=== PATIENT | female | born 1995 | race Caucasian/White ===

== ENCOUNTER 2018-09-16 23:13 | Emergency (ER) | payer SELFPAY ==
[~2018-09-16] VITALS: Ht 162.6 cm; Wt 51.7 kg
[~2018-09-16 23:13] MED LIST: NITR-65 PO
--- OUTSIDE RECORDS SUMMARY | 2018-09-16 23:18 | XMS REPORT ---
Author Author DEINSE CASTILLO [facility] Address [address] [place] [address] Care Team Providers Care Government Auditor Name Role Phone DENISE CASTILLO Unavailable PROBLEMS Type Condition ICD9-CM Code [id number] Code Onset Dates Condition Status SNOMED Code Problem Menorrhagia with irregular cycle N92.1 Active 005080421 Problem Dysfunctional uterine bleeding N93.8 Active 03751430 Problem Moderate episode of recurrent major depressive disorder F33.1 Active 409206831 Problem Borderline personality disorder F60.3 Active 68536199 ALLERGIES No Information ENCOUNTERS Encounter Location Date Diagnosis [place] [id number] [place] [address] 08028- 5460 Mar, [place] [id number] [place] [address] 24277- 5234 Mar, Menorrhagia with irregular cycle N92.1 and IUD check up Z30.431 [place] [id number] [place] [address] 59644- 7206 Jan, Encounter for insertion of mirena IUD Z30.430 and Screening examination for sexually transmitted disease Z11.3 [place] [id number] [place] [address] 14857- 2958 Jan, Encounter for other contraceptive management Z30.8 and Dysfunctional uterine bleeding N93.8 [place] [id number] [place] [address] 20044- 7471 Dec, [place] [id number] [place] [address] 92715- 6301 Dec, [place] [id number] [place] [address] 59657- 8116 Dec, Moderate episode of recurrent major depressive disorder F33.1 [facility] [address] [facility] [id number] [place] [address] 8766 Dec, [facility] [address] [facility] [id number], [place] [address] 2546 Dec, Moderate episode of recurrent major depressive disorder F33.1 and Encounter for surveillance of contraceptive pills Z30.41 [facility] [address] [facility] [id number] [id number] Sep, Dental examination Z01.20 IMMUNIZATIONS No Known Immunizations SOCIAL HISTORY Never Assessed REASON FOR VISIT BH/AT phone response PLAN OF CARE VITAL SIGNS MEDICATIONS Unknown Medications RESULTS No Results PROCEDURES No Known procedures INSTRUCTIONS MEDICATIONS ADMINISTERED No Known Medications MEDICAL (GENERAL) HISTORY Type Description Date Surgical History Appendix Hospitalization History surgeries 2017
--- OUTSIDE RECORDS SUMMARY | 2018-09-16 23:18 | XMS REPORT ---
Author Author DENISE CASTILLO [facility] Address [address] [place] [address] Care Team Providers Care Housing Inspector Name Role Phone DENISE CASTILLO Unavailable PROBLEMS Type Condition ICD9-CM Code [id number] Code Onset Dates Condition Status SNOMED Code Problem Menorrhagia with irregular cycle N92.1 Active 416563350 Problem Dysfunctional uterine bleeding N93.8 Active 92605573 Problem Moderate episode of recurrent major depressive disorder F33.1 Active 732465079 Problem Borderline personality disorder F60.3 Active 48449667 ALLERGIES No Information ENCOUNTERS Encounter Location Date Diagnosis [place] [id number] [place] [address] 96175- 5571 Mar, [place] [id number] [place] [address] 34960- 4211 Mar, Menorrhagia with irregular cycle N92.1 and IUD check up Z30.431 [place] [id number] [place] [address] 14107- 4827 Jan, Encounter for insertion of mirena IUD Z30.430 and Screening examination for sexually transmitted disease Z11.3 [place] [id number] [place] [address] 23199- 4440 Jan, Encounter for other contraceptive management Z30.8 and Dysfunctional uterine bleeding N93.8 [place] [id number] [place] [address] 43855- 9024 Dec, [place] [id number] [place] [address] 91903- 3421 Dec, [place] [id number] [place] [address] 97430- 6448 Dec, Moderate episode of recurrent major depressive disorder F33.1 [facility] [address] [facility] [id number] [place] [address] 4146 Dec, [facility] [address] [facility] [id number], [place] [address] 2546 Dec, Moderate episode of recurrent major depressive disorder F33.1 and Encounter for surveillance of contraceptive pills Z30.41 [facility] [address] [facility] [id number] [id number] Sep, Dental examination Z01.20 IMMUNIZATIONS No Known Immunizations SOCIAL HISTORY Never Assessed REASON FOR VISIT Requests return call PLAN OF CARE VITAL SIGNS MEDICATIONS Unknown Medications RESULTS No Results PROCEDURES No Known procedures INSTRUCTIONS MEDICATIONS ADMINISTERED No Known Medications MEDICAL (GENERAL) HISTORY Type Description Date Surgical History Appendix Hospitalization History surgeries 2017
--- OUTSIDE RECORDS SUMMARY | 2018-09-16 23:18 | XMS REPORT ---
Author Author DENISE CASTILLO [facility] Address [address] [place] [address] Care Team Providers Care Wheel Tuner Name Role Phone DENISE CASTILLO Unavailable PROBLEMS Type Condition ICD9-CM Code [id number] Code Onset Dates Condition Status SNOMED Code Problem Menorrhagia with irregular cycle N92.1 Active 563613537 Problem Dysfunctional uterine bleeding N93.8 Active 38544722 Problem Moderate episode of recurrent major depressive disorder F33.1 Active 686186944 Problem Borderline personality disorder F60.3 Active 51241492 ALLERGIES Substance Reaction Event Type Date Status Penicillin V Potassium shortness of breath Drug Allergy Dec, Active ENCOUNTERS Encounter Location Date Diagnosis [place] [address] [place] [address] 43093- 6171 Mar, [place] [id number] [place] [address] 01904- 1263 Mar, Menorrhagia with irregular cycle N92.1 and IUD check up Z30.431 [place] [address] [place] [address] 85144- 9243 Jan, Encounter for insertion of mirena IUD Z30.430 and Screening examination for sexually transmitted disease Z11.3 [place] [address] [place] [address] 73207- 4317 Jan, Encounter for other contraceptive management Z30.8 and Dysfunctional uterine bleeding N93.8 [place] [id number] [place] [address] 58280- 5072 Dec, [place] [address] [place] [address] 35475- 2596 Dec, [place] [id number] [place] [address] 55116- 5796 Dec, Moderate episode of recurrent major depressive disorder F33.1 [facility] [address] [facility] [id number] [address] 8364 Dec, [facility] [address] [facility] [id number] [place] [address]- 3266 Dec, Moderate episode of recurrent major depressive disorder F33.1 and Encounter for surveillance of contraceptive pills Z30.41 [facility] [address] [facility] [id number] [place] [id number] Sep, Dental examination Z01.20 IMMUNIZATIONS No Known Immunizations SOCIAL HISTORY Never Assessed REASON FOR VISIT Establish Care-maria esther Armas want to get back on her meds PLAN OF CARE Activity Details Follow Up 1 Year Reason:PAP VITAL SIGNS Weight 112.7 lbs 2018-01-04 Temperature 98.1 degrees Fahrenheit 2018-01-04 Heart Rate 64 bpm 2018-01-04 Respiratory Rate 16 2018-01-04 Blood pressure systolic 98 mmHg 2018-01-04 Blood pressure diastolic 60 mmHg 2018-01-04 MEDICATIONS Medication Instructions Dosage Frequency Start Date End Date Duration Status Enskyce 0.15-30 MG-MCG Orally Once a day 1 tablet 24h Dec, 28 day(s) Active Citalopram Hydrobromide 20 mg Orally Once a day 1 tablet 24h Dec, 30 day(s) Active Trazodone HCl 50 mg Orally Once a day at HS 1 tablet at bedtime as needed Dec, 30 day(s) Active Lamictal 25 MG Orally qhs 1 tablet daily x 2wk then increase to 2 tabs Dec, 30 day(s) Active RESULTS No Results PROCEDURES No Known procedures INSTRUCTIONS MEDICATIONS ADMINISTERED No Known Medications MEDICAL (GENERAL) HISTORY Type Description Date Surgical History Appendix Hospitalization History surgeries 2016
--- OUTSIDE RECORDS SUMMARY | 2018-09-16 23:18 | XMS REPORT ---
Author Author DENISE CASTILLO [facility] Address [address] [place] [address] Care Team Providers Care Academic Interventionist Name Role Phone DENISE CASTILLO Unavailable PROBLEMS Type Condition ICD9-CM Code [id number] Code Onset Dates Condition Status SNOMED Code Problem Menorrhagia with irregular cycle N92.1 Active 386458520 Problem Dysfunctional uterine bleeding N93.8 Active 95193454 Problem Moderate episode of recurrent major depressive disorder F33.1 Active 037772077 Problem Borderline personality disorder F60.3 Active 96348069 ALLERGIES No Information ENCOUNTERS Encounter Location Date Diagnosis [place] [id number] [place] [address] 68152- 1678 Mar, [place] [address] [place] [address] 23820- 2677 Mar, Menorrhagia with irregular cycle N92.1 and IUD check up Z30.431 [place] [address] [place] [address] 81333- 4233 Jan, Encounter for insertion of mirena IUD Z30.430 and Screening examination for sexually transmitted disease Z11.3 [place] [id number] [place] [address] 77066- 4659 Jan, Encounter for other contraceptive management Z30.8 and Dysfunctional uterine bleeding N93.8 [place] [id number] [place] [address] 73684- 1997 Dec, [place] [id number] [place] [address] 65543- 0873 Dec, [place] [id number] [place] [address] 44768- 1021 Dec, Moderate episode of recurrent major depressive disorder F33.1 [facility] [address] [facility] [id number] [place] [address]- 1566 Dec, [facility] [place] [address] [facility] [id number][place] [address]- 2546 Dec, Moderate episode of recurrent major depressive disorder F33.1 and Encounter for surveillance of contraceptive pills Z30.41 [facility] [address] [facility] [id number] [address] Sep, Dental examination Z01.20 IMMUNIZATIONS No Known Immunizations SOCIAL HISTORY Never Assessed REASON FOR VISIT PLAN OF CARE VITAL SIGNS MEDICATIONS Unknown Medications RESULTS No Results PROCEDURES No Known procedures INSTRUCTIONS MEDICATIONS ADMINISTERED No Known Medications MEDICAL (GENERAL) HISTORY Type Description Date Surgical History Appendix Hospitalization History surgeries 2017
--- OUTSIDE RECORDS SUMMARY | 2018-09-16 23:18 | XMS REPORT ---
Author Author DENISE CASTILLO [facility] Address [address] [place] [address] Care Team Providers Care Cement Truck Driver Name Role Phone DENISE CASTILLO Unavailable PROBLEMS Type Condition ICD9-CM Code [id number] Code Onset Dates Condition Status SNOMED Code Problem Menorrhagia with irregular cycle N92.1 Active 769718698 Problem Dysfunctional uterine bleeding N93.8 Active 29496772 Problem Moderate episode of recurrent major depressive disorder F33.1 Active 206362922 Problem Borderline personality disorder F60.3 Active 46559279 ALLERGIES Substance Reaction Event Type Date Status Penicillin V Potassium shortness of breath Drug Allergy Jan, Active ENCOUNTERS Encounter Location Date Diagnosis [place] [address] [place] [address] 27452- 5909 Mar, Cervicitis N72 and Menorrhagia with irregular cycle N92.1 [place] [id number] [place] [address] 26309- 4851 Mar, Menorrhagia with irregular cycle N92.1 and IUD check up Z30.431 [place] [address] [place] [address] 15471- 5141 Jan, Encounter for insertion of mirena IUD Z30.430 and Screening examination for sexually transmitted disease Z11.3 [place] [address] [place] [address] 82757- 5271 Jan, Encounter for other contraceptive management Z30.8 and Dysfunctional uterine bleeding N93.8 [place] [address] [place] [address] 73156- 3089 Dec, [place] [id number] [place] [address] 60705- 6175 Dec, [facility] [address] [facility] [id number] [place] [address]- 1057 11 Dec, 2017 Moderate episode of recurrent major depressive disorder F33.1 [facility] [address] [facility] [id number] [place] [address]- 8095 06 Dec, 2017 [facility] [address] [facility] [id number] [place] [address]- 3501 06 Dec, 2017 Moderate episode of recurrent major depressive disorder F33.1 and Encounter for surveillance of contraceptive pills Z30.41 [facility] [address] [facility] [id number] [place] [id number] Sep, Dental examination Z01.20 IMMUNIZATIONS No Known Immunizations SOCIAL HISTORY Never Assessed REASON FOR VISIT IUD insertion. MANAS Torres PLAN OF CARE Activity Details Follow Up 4 Weeks Reason:IUD check VITAL SIGNS Height 65 in 2018-02-24 Weight 108.2 lbs 2018-02-24 Temperature 99.7 degrees Fahrenheit 2018-02-24 Heart Rate 88 bpm 2018-02-24 Respiratory Rate 18 2018-02-24 BMI 18.00 kg/m2 2018-02-24 Blood pressure systolic 108 mmHg 2018-02-24 Blood pressure diastolic 56 mmHg 2018-02-24 MEDICATIONS Medication Instructions Dosage Frequency Start Date End Date Duration Status Ibuprofen 800 MG Orally Three times a day 1 tablet with food or milk as needed Jan, Mar, 10 days Active RESULTS No Results PROCEDURES Procedure Date Ordered Result Body Site INSERT INTRAUTERINE DEVICE February 24, 2018 URINE TEST February 24, 2018 TRICHOMONAS ASSAY W/OPTIC February 24, 2018 MIRENA LNG-RELEASING IUC SYS 52MG 5 YR DUR February 24, 2018 No Charge February 24, 2018 CULTURE, BACTERIA, OTHER February 24, 2018 INSTRUCTIONS MEDICATIONS ADMINISTERED No Known Medications MEDICAL (GENERAL) HISTORY Type Description Date Surgical History Appendix Hospitalization History surgeries 2016
--- OUTSIDE RECORDS SUMMARY | 2018-09-16 23:18 | XMS REPORT ---
Author Author ROVERTO NINA Organization [facility] Address [address] [place] [address] Care Team Providers Care Brush Clearing Laborer Name Role Phone DANIELLAMISSY NINA Unavailable PROBLEMS Type Condition ICD9-CM Code ZHG89-KP Code Onset Dates Condition Status SNOMED Code Problem Menorrhagia with irregular cycle N92.1 Active 132091850 Problem Dysfunctional uterine bleeding N93.8 Active 28788889 Problem Moderate episode of recurrent major depressive disorder F33.1 Active 086121806 Problem Borderline personality disorder F60.3 Active 10301181 ALLERGIES Substance Reaction Event Type Date Status Penicillin V Potassium shortness of breath Drug Allergy Dec, Active ENCOUNTERS Encounter Location Date Diagnosis [place] [address] 07980- 4582 Mar, [place] [address] 37530- 9746 Mar, Menorrhagia with irregular cycle N92.1 and IUD check up Z30.431 [place] [id number] [place] [address] 45839- 9687 Jan, Encounter for insertion of mirena IUD Z30.430 and Screening examination for sexually transmitted disease Z11.3 [place] [address] [id number] [place] [address] 10034- 7411 Jan, Encounter for other contraceptive management Z30.8 and Dysfunctional uterine bleeding N93.8 [place] [address] 19485- 7759 Dec, [place] [id number] [place] [address] 26190- 2918 Dec, [place] [address] 38893- 2546 Dec, Moderate episode of recurrent major depressive disorder F33.1 [facility] [address] [facility] [id number] [place] [address]- 0356 Dec, [facility] [address] [facility] [id number] [place] [address]- 3876 Dec, Moderate episode of recurrent major depressive disorder F33.1 and Encounter for surveillance of contraceptive pills Z30.41 [facility] [address] [id number] [place] [id number] Sep, Dental examination Z01.20 IMMUNIZATIONS No Known Immunizations SOCIAL HISTORY Never Assessed REASON FOR VISIT bella Marti MA PLAN OF CARE Activity Details Follow Up 4 Weeks Reason: VITAL SIGNS Height 65 in 2018-01-09 Weight 111.8 lbs 2018-01-09 Heart Rate 88 bpm 2018-01-09 Respiratory Rate 20 2018-01-09 Oximetry on room air:97 % 2018-01-09 BMI 18.60 kg/m2 2018-01-09 Blood pressure systolic 118 mmHg 2018-01-09 Blood pressure diastolic 60 mmHg 2018-01-09 MEDICATIONS Medication Instructions Dosage Frequency Start Date End Date Duration Status Trazodone HCl 50 mg Orally Once a day at HS 1 tablet at bedtime as needed Dec, Active Lamictal 25 MG Orally qhs 1 tablet daily x 2wk then increase to 2 tabs Dec, Active Citalopram Hydrobromide 20 mg Orally Once a day 1 tablet 24h Dec, Active Enskyce 0.15-30 MG-MCG Orally Once a day 1 tablet 24h Dec, 28 day(s) Active RESULTS No Results PROCEDURES No Known procedures INSTRUCTIONS MEDICATIONS ADMINISTERED No Known Medications MEDICAL (GENERAL) HISTORY Type Description Date Surgical History Appendix Hospitalization History surgeries 2016
--- OUTSIDE RECORDS SUMMARY | 2018-09-16 23:18 | XMS REPORT ---
Author Author DENISE CASTILLO [facility] Address [address] [place] [address] Care Team Providers Care Laser Technician Name Role Phone DENISE CASTILLO Unavailable PROBLEMS Type Condition ICD9-CM Code IQE48-PT Code Onset Dates Condition Status SNOMED Code Problem Menorrhagia with irregular cycle N92.1 Active 508701567 Problem Dysfunctional uterine bleeding N93.8 Active 90991384 Problem Moderate episode of recurrent major depressive disorder F33.1 Active 355952971 Problem Borderline personality disorder F60.3 Active 47249587 ALLERGIES Substance Reaction Event Type Date Status Penicillin V Potassium shortness of breath Drug Allergy Mar, Active ENCOUNTERS Encounter Location Date Diagnosis [place] [address] [place] [address] 66102- 7817 Mar, Cervicitis N72 and Menorrhagia with irregular cycle N92.1 [place] [address] [id number] [place] [address] 71853- 5939 Mar, Menorrhagia with irregular cycle N92.1 and IUD check up Z30.431 [place] [address] [place] [address] 68822- 5618 Jan, Encounter for insertion of mirena IUD Z30.430 and Screening examination for sexually transmitted disease Z11.3 [place] [address] [place] [address] 21568- 1074 Jan, Encounter for other contraceptive management Z30.8 and Dysfunctional uterine bleeding N93.8 [place] [address] [place] [address] 37112- 3522 Dec, [place] [id number] [place] [address] 92457- 0317 Dec, [facility] [address] [facility] [id number], [place] [address]- 7516 Dec, Moderate episode of recurrent major depressive disorder F33.1 [facility] [address] [facility] [id number], [place] [address]- 7160 06 Dec, 2017 [facility] [address] [facility] [id number], [place] [address]- 2728 Dec, Moderate episode of recurrent major depressive disorder F33.1 and Encounter for surveillance of contraceptive pills Z30.41 [facility] [address] [facility] [id number][place] [id number] Sep, Dental examination Z01.20 IMMUNIZATIONS No Known Immunizations SOCIAL HISTORY Never Assessed REASON FOR VISIT IUD complications- heavy bleeding, cramping, dizziness and nausea since inserted two weeks ago Derek Martinez RN PLAN OF CARE Activity Details Follow Up prn Reason: VITAL SIGNS Height 65 in 2018-03-09 Weight 109.1 lbs 2018-03-09 Temperature 98.5 degrees Fahrenheit 2018-03-09 Heart Rate 82 bpm 2018-03-09 Respiratory Rate 18 2018-03-09 BMI 18.15 kg/m2 2018-03-09 Blood pressure systolic 112 mmHg 2018-03-09 Blood pressure diastolic 62 mmHg 2018-03-09 MEDICATIONS Medication Instructions Dosage Frequency Start Date End Date Duration Status Fluconazole 150 MG 1 tablet now and repeat 1 tablet dose in 72 hours Mar, Active Ibuprofen 800 MG Orally Three times a day 1 tablet with food or milk as needed 8h Jan, Mar, 10 days Active RESULTS Name Result Date Reference Range CBC 2018-03-09 WHITE BLOOD CELL COUNT 9.0 3.8-10.8 RED BLOOD CELL COUNT 4.36 3.80-5.10 HEMOGLOBIN 13.1 11.7-15.5 HEMATOCRIT 38.6 35.0-45.0 MCV 88.5 80.0-100.0 MCH 30.0 27.0-33.0 MCHC 33.9 32.0-36.0 RDW 11.9 11.0-15.0 PLATELET COUNT 157 140-400 MPV 11.0 7.5-12.5 ABSOLUTE NEUTROPHILS 6768 [phone] ABSOLUTE LYMPHOCYTES 8801 073-5480 ABSOLUTE MONOCYTES 513 200-950 ABSOLUTE EOSINOPHILS 63 15-500 ABSOLUTE BASOPHILS 90 0-200 NEUTROPHILS 75.2 LYMPHOCYTES 17.4 MONOCYTES 5.7 EOSINOPHILS 0.7 BASOPHILS 1.0 PROCEDURES Procedure Date Ordered Result Body Site COMPLETE CBC W/AUTO DIFF WBC Mar 09, 2018 INSTRUCTIONS MEDICATIONS ADMINISTERED No Known Medications MEDICAL (GENERAL) HISTORY Type Description Date Surgical History Appendix Hospitalization History surgeries 2017
--- OUTSIDE RECORDS SUMMARY | 2018-09-16 23:18 | XMS REPORT ---
Author Author DENISE CASTILLO [facility] Address [address] [place] [address] Care Team Providers Care Electronic Console Display Operator Name Role Phone DENISE CASTILLO Unavailable PROBLEMS Type Condition ICD9-CM Code [id number] Code Onset Dates Condition Status SNOMED Code Problem Menorrhagia with irregular cycle N92.1 Active 651833284 Problem Dysfunctional uterine bleeding N93.8 Active 64256350 Problem Moderate episode of recurrent major depressive disorder F33.1 Active 414955029 Problem Borderline personality disorder F60.3 Active 68930730 ALLERGIES Substance Reaction Event Type Date Status Penicillin V Potassium shortness of breath Drug Allergy Mar, Active ENCOUNTERS Encounter Location Date Diagnosis [place] [id number] [place] [address] Mar, Cervicitis N72 and Menorrhagia with irregular cycle N92.1 [place] [address] [place] [id number] [place] [address]- 7078 Mar, Menorrhagia with irregular cycle N92.1 and IUD check up Z30.431 [place] [address] [place] [address]- 2208 Jan, Encounter for insertion of mirena IUD Z30.430 and Screening examination for sexually transmitted disease Z11.3 [place] [address] [place] [address]- 9014 Jan, Encounter for other contraceptive management Z30.8 and Dysfunctional uterine bleeding N93.8 [place] [address] [place] [address] 78257- 6766 Dec, [place] [address] [place] [id number] [place] [address]- [address] Dec, [facility] [address] [facility] [id number] [address] 11 Dec, 2017 Moderate episode of recurrent major depressive disorder F33.1 [facility] [address] [facility] [id number] [address] 06 Dec, 2017 [facility] [address] [facility] [id number] [address] 06 Dec, 2017 Moderate episode of recurrent major depressive disorder F33.1 and Encounter for surveillance of contraceptive pills Z30.41 [facility] [address] [id number] [id number] Sep, Dental examination Z01.20 IMMUNIZATIONS No Known Immunizations SOCIAL HISTORY Never Assessed REASON FOR VISIT IUD [id number]--[id number], Pt is wanting to discuss having IUD removed, test ran today and is negative. PLAN OF CARE Activity Details Follow Up 2 Weeks Reason: VITAL SIGNS Height 65 in 2018-03-31 Weight 108.4 lbs 2018-03-31 Temperature 98.2 degrees Fahrenheit 2018-03-31 Heart Rate 70 bpm 2018-03-31 Respiratory Rate 18 2018-03-31 BMI 18.04 kg/m2 2018-03-31 Blood pressure systolic 92 mmHg 2018-03-31 Blood pressure diastolic 58 mmHg 2018-03-31 MEDICATIONS Medication Instructions Dosage Frequency Start Date End Date Duration Status Mirena (52 MG) 20 MCG/24HR Active MedroxyPROGESTERone Acetate 5 mg Orally Once a day 1 tablet with food 24h Mar, Apr, 10 days Active RESULTS Name Result Date Reference Range TRICHOMONAS (IN HOUSE) 2018-03-31 TRICHOMONAS NEG Control + Lot # [id number] Exp date 03/2019 BACTERIAL VAGINOSIS (IN HOUSE) 2018-03-31 RESULTS NEG Control + Lot # [id number] Exp date 10/2018 GC/CHLAM PROBE (STATE) 2018-03-31 CHLAMYDIA neg GC neg PROCEDURES Procedure Date Ordered Result Body Site No Charge Mar 31, 2018 TRICHOMONAS ASSAY W/OPTIC Mar 31, 2018 Bacterial Vaginosis In House Mar 31, 2018 INSTRUCTIONS MEDICATIONS ADMINISTERED No Known Medications MEDICAL (GENERAL) HISTORY Type Description Date Surgical History Appendix Hospitalization History surgeries 2017
--- OUTSIDE RECORDS SUMMARY | 2018-09-16 23:18 | XMS REPORT ---
Author Author DENISE CASTILLO [facility] Address [address] [place] [address] Care Team Providers Care Scientific Affairs Manager Name Role Phone DENISE CASTILLO Unavailable PROBLEMS Type Condition ICD9-CM Code VDR11-[id number] Code Onset Dates Condition Status SNOMED Code Problem Menorrhagia with irregular cycle N92.1 Active 324340254 Problem Dysfunctional uterine bleeding N93.8 Active 68261562 Problem Moderate episode of recurrent major depressive disorder F33.1 Active 882717797 Problem Borderline personality disorder F60.3 Active 72753238 ALLERGIES Substance Reaction Event Type Date Status Penicillin V Potassium shortness of breath Drug Allergy Jan, Active ENCOUNTERS Encounter Location Date Diagnosis [place] [address] [place] [address]3266- 8267 Mar, Cervicitis N72 and Menorrhagia with irregular cycle N92.1 [place] [address] [place] [id number] [place] [address] 95645- 6959 Mar, Menorrhagia with irregular cycle N92.1 and IUD check up Z30.431 [place] [address] [place] [address] 67487- 8755 Jan, Encounter for insertion of mirena IUD Z30.430 and Screening examination for sexually transmitted disease Z11.3 [place] [address] [place] [address] 15258- 8206 Jan, Encounter for other contraceptive management Z30.8 and Dysfunctional uterine bleeding N93.8 [place] [address] [place] [address] 22039- 2828 Dec, [place] [address] [place] [id number] [place] [address] 74989- 9326 Dec, [facility] [address] [facility] [id number] [address] 11 Dec, 2017 Moderate episode of recurrent major depressive disorder F33.1 [facility] [address] [facility] [id number] 06 Dec, 2017 [facility] [address] [facility] [id number], [place] [address] 06 Dec, 2017 Moderate episode of recurrent major depressive disorder F33.1 and Encounter for surveillance of contraceptive pills Z30.41 [facility] [address] [facility] [id number] [id number] Sep, Dental examination Z01.20 IMMUNIZATIONS No Known Immunizations SOCIAL HISTORY Never Assessed REASON FOR VISIT control consult., has been on control pills but quit taking them and would like to talk about getting a different form of BC, patient is favorable for mirena.-awoods PLAN OF CARE Activity Details Follow Up 2 Weeks Reason:IUD insertion VITAL SIGNS Height 65 in 2018-02-10 Weight 111.9 lbs 2018-02-10 Temperature 98.9 degrees Fahrenheit 2018-02-10 Heart Rate 73 bpm 2018-02-10 Respiratory Rate 18 2018-02-10 BMI 18.62 kg/m2 2018-02-10 Blood pressure systolic 100 mmHg 2018-02-10 Blood pressure diastolic 60 mmHg 2018-02-10 MEDICATIONS Medication Instructions Dosage Frequency Start Date End Date Duration Status Cytotec 200 MCG Orally once 2 tablet with meals and at bedtime the night prior to IUD insertion Jan, 1 dose Active RESULTS No Results PROCEDURES Procedure Date Ordered Result Body Site URINE TEST February 10, 2018 No Charge February 10, 2018 ASSAY THYROID STIM HORMONE February 10, 2018 COMPLETE CBC W/AUTO DIFF WBC February 10, 2018 INSTRUCTIONS MEDICATIONS ADMINISTERED No Known Medications MEDICAL (GENERAL) HISTORY Type Description Date Surgical History Appendix Hospitalization History surgeries 2016
--- OUTSIDE RECORDS SUMMARY | 2018-09-16 23:19 | XMS REPORT ---
Author Author JUSTIN PORTER Organization [facility] Address [address] [place] [address] Care Team Providers Care Workforce Planner Name Role Phone JUSTIN PORTER Unavailable PROBLEMS Type Condition ICD9-CM Code CZW19-NE Code Onset Dates Condition Status SNOMED Code Problem Dysfunctional uterine bleeding N93.8 Active 03174920 Problem Moderate episode of recurrent major depressive disorder F33.1 Active 899857018 Problem Borderline personality disorder F60.3 Active 04749784 ALLERGIES Substance Reaction Event Type Date Status Penicillin V Potassium shortness of breath Drug Allergy Sep, Active ENCOUNTERS Encounter Location Date Diagnosis [place] [address] [place] [id number] [place] [address] 54414- 4198 Jan, [facility] [address] [place] [id number] [place] [address] 32325- 4761 Jan, Encounter for other contraceptive management Z30.8 and Dysfunctional uterine bleeding N93.8 [facility] [address] [place] [id number] [place] [address] 87154- 9628 Dec, [facility] [address] [place] [id number] [place] [address] 70109- 9182 Dec, [facility] [address] [place] [id number] [place] [address] 42223- 9380 Dec, Moderate episode of recurrent major depressive disorder F33.1 [facility] [address] [place] [id number] [place] [address] 03823- 1615 Dec, [facility] [address] [place] [id number] [place] [address] 20432- 4588 Dec, Moderate episode of recurrent major depressive disorder F33.1 and Encounter for surveillance of contraceptive pills Z30.41 [facility] [address] [place] [id number] [place] [id number] Sep, Dental examination Z01.20 IMMUNIZATIONS No Known Immunizations SOCIAL HISTORY Never Assessed REASON FOR VISIT WALK IN [place] PLAN OF CARE Activity Details Follow Up as directed Reason:TE- #2 VITAL SIGNS Blood pressure systolic 114 mmHg 2017-10-10 Blood pressure diastolic 60 mmHg 2017-10-10 MEDICATIONS Medication Instructions Dosage Frequency Start Date End Date Duration Status Azithromycin 250 MG Orally Once a day 2 tablets on the first day, then 1 tablet daily for 4 days 24h Sep, Sep, 5 day(s) Active RESULTS No Results PROCEDURES Procedure Date Ordered Result Body Site LTD ORAL EVALUATION - PROBLEM FOCUS October 10, 2017 INTRAORL-PERIAPICAL 1 FILM 70195 October 10, 2017 Billing Notes on claim October 10, 2017 INSTRUCTIONS MEDICATIONS ADMINISTERED No Known Medications MEDICAL (GENERAL) HISTORY Type Description Date Surgical History Appendix Hospitalization History surgeries 2017
[2018-09-17] MEDS ORDERED: SERT25TA PO (00:17)
--- NOTE | 2018-09-17 00:19 | ED Lower Extremity ---
General Stated Complaint: R ANKLE PAIN Source: patient Exam Limitations: no limitations History of Present Illness Date Seen by Provider: Sep 17, 2018 Time Seen by Provider: 00:10 Initial Comments PT ARRIVES VIA POV FROM HOME C/O RIGHT ANKLE INJURY STATES SHE SLIPPED ON THE ICE AND FELL, INJURING HER RIGHT ANKLE OCCURRED AT 1300 TODAY AT BOYFRIEND'S AUNT'S HOUSE NO OTHER INJURIES NO PRIOR INJURY TO THIS ANKLE NO PARESTHESIAS OR MOTOR DEFICITS HAS NOT TAKEN ANYTHING FOR PAIN PCP: Allergies and Home Medications Allergies Coded Allergies: Penicillins (Verified Allergy, Unknown, 11/22/17) Home Medications Tramadol HCl 50 Mg Tablet, 50 MG PO Q4H Prescribed by: SONIA GRANGER on 09/17/18 0050 Patient Home Medication List Home Medication List Reviewed: Yes Review of Systems Constitutional: no symptoms reported : No LMP: Sep 16, 2018 Control/STD Prophylaxis: None Musculoskeletal: see HPI Skin: no symptoms reported Psychiatric/Neurological: No Symptoms Reported Past Vekgndb-Ckivir-Pcrstk Hx Patient Social History Alcohol Use: Denies Use Recreational Drug Use: No Smoking Status: Never a Smoker 2nd Hand Smoke Exposure: No Recent Foreign Travel: No Contact w/Someone Who Travel: No Recent Hopitalizations: No Immunizations Up To Date Tetanus Booster (TDap): Unknown PED Vaccines UTD: Yes Seasonal Allergies Seasonal Allergies: No Past Medical History Surgeries: Yes Appendectomy Respiratory: No Cardiac: No Neurological: No : No Genitourinary: No Gastrointestinal: No Musculoskeletal: No Endocrine: No HEENT: No Cancer: No Psychosocial: Yes (JUST STARTED ZOLOFT 09/2018) Depression Integumentary: No Blood Disorders: No Physical Exam Vital Signs Vital Signs - First Documented 09/17/18 00:09 Temp 97.5 Pulse 86 Resp 18 B/P (MAP) 105/48 (67) Pulse Ox 100 O2 Delivery Room Air Capillary Refill : Height, Weight, BMI Height: 5'4.00" Weight: 120lbs. oz. 54.207527dn; BMI Method:Stated General Appearance: WD/WN, no apparent distress Hips: bilateral hip normal inspection Legs: left leg normal inspection; right leg bone tenderness, right leg limited range of motion, right leg pain, right leg soft tissue tenderness, right leg swelling, right leg other (TENDERNESS AND MILD SWELLING TO RIGHT MID AND DISTAL LOWER LEG, AND RIGHT ANKLE--MODERATE SWELLING TO ANKLE AND ANKLE IS MUCH MORE TENDER. LIMITED ROM DUE TO PAIN, DISTAL MOTOR/SENSORY/VASCULAR INTACT) Knees: bilateral knee normal inspection Ankles: left ankle normal inspection; right ankle bone tenderness, right ankle limited range of motion, right ankle pain, right ankle soft tissue tenderness, right ankle swelling, right ankle other ( ABOVE) Feet: bilateral foot normal inspection Neurologic/Tendon: normal sensation, normal motor functions, normal tendon functions Neurologic/Psychiatric: physician coding specialist II-XII nml as tested, no motor/sensory deficits, alert, normal mood/affect, oriented x 3 Skin: normal color, warm/dry Procedures/Interventions Splinting and Joint Reduction : Hao wrap: Yes Immobilizers: Step Light Walker s/m/lg Ordered: Crutches Progress/Results/Core Measures Results/Orders My Orders Orders - SONIA GRANGER DO Tibia/Fibula, Right, 2 Views (09/17/18 00:14) Ankle, Right, 3 Views (09/17/18 00:14) Hao Bandage (09/17/18 00:45) Steplite (09/17/18 00:45) Rx-Tramadol Hcl (Rx-Ultram) (09/17/18 00:46) Crutches (09/17/18 00:51) Rx-Tramadol Hcl (Rx-Ultram) (09/17/18 00:43) Vital Signs/I&O 09/17/18 09/17/18 00:09 01:08 Temp 97.5 97.9 Pulse 86 83 Resp 18 18 B/P (MAP) 105/48 (67) 112/63 (79) Pulse Ox 100 99 O2 Delivery Room Air Room Air Diagnostic Imaging Comments XRAYS RIGHT ANKLE--FX MEDIAL MALLEOLUS, PENDING RADIOLOGIST REVIEW Reviewed: Reviewed by Me Departure Impression Primary Impression: Closed fracture of medial malleolus of right ankle Disposition: HOME, SELF-CARE Condition: Stable Departure-Patient Inst. Referrals: NO,LOCAL PHYSICIAN (PCP) Primary Care Physician GRETA VILCHIS MD Patient Instructions: Ankle Fracture (DC), Going Up and Down Curbs or Stairs With a Walker or Crutches, How to Use Crutches, How to Use an Elastic Bandage Add. Discharge Instructions: ICE TO AREA AT 20 MINUTE INTERVALS ELEVATE FOOT MUCH POSSIBLE HAO WRAP AND BOOT AT ALL TIMES, USE CRUTCHES AT ALL TIMES FOLLOW UP WITH DR. VILCHIS OR ORTHOPEDIC SURGEON OF CHOICE NEXT WEEK FOR FURTHER CARE Scripts Tramadol HCl (Ultram) 50 Mg Tablet 50 MG PO Q4H, #20 TAB Prov: SONIA GRANGER DO 09/17/18 SONIA GRANGER DO Sep 17, 2018 00:19
[2018-09-17] MEDS ORDERED: RX-TRAMADOL 50 MG (ULTRAM) TAB PPK#4 PO ONE (00:43)
[2018-09-17] MEDS ORDERED: RX-TRAMADOL 50 MG (ULTRAM) TAB PPK#4 PO STA (00:46)
[2018-09-17] MEDS ORDERED: TRAM-42 PO (00:50)
[2018-09-17 01:08] VITALS: BP 112/63
--- NOTE | 2018-09-17 07:47 | Diagnostic Imaging Report ---
INDICATION: Slipped on ice, twisting ankle, bruising and swelling. Medial malleolus fracture. TECHNIQUE: AP and lateral views of the right tibia and fibula CORRELATION STUDY: None FINDINGS: There is a transversely oriented fracture at the medial malleolus. There is slight medial displacement of main distal fracture fragment. The remainder of the tibia as well as fibula are otherwise intact. Soft tissue swelling at the level of ankle. IMPRESSION: 1.Mildly displaced distal medial malleolus fracture associated with soft tissue swelling. Dictated by: Dictated on workstation # [id number]
--- NOTE | 2018-09-17 07:54 | Diagnostic Imaging Report ---
INDICATION: Slipped on ice, twisted ankle. Pain and bruising. TECHNIQUE: Three views of the right ankle CORRELATION STUDY: None FINDINGS: Transverse displaced fracture of the medial malleolus. There is medial displacement of the distal fracture fragment of approximately 4 mm. Alignment otherwise anatomic. The distal fibula intact. Talar dome intact. Ankle mortise demonstrate perhaps minimal widening medially. Prominent soft tissue swelling particularly medially. IMPRESSION: Mildly displaced medial malleolus fracture associated with soft tissue swelling. Very slight widening of medial ankle mortise. Dictated by: Dictated on workstation # [id number]
== END 2018-09-17 01:10 | disposition home or self-care (01) ==
LOC: EDUNIT# 23:13 → ER 23:14
DX: S82.51XA Displaced fracture of medial malleolus of right tibia, initial encounter for closed fracture (principal); F32.9 Major depressive disorder, single episode, unspecified; Z88.0 Allergy status to penicillin; Z90.49 Acquired absence of other specified parts of digestive tract; W00.9XXA Unspecified fall due to ice and snow, initial encounter
CPT/HCPCS: 73590; 73610

== ENCOUNTER 2019-08-26 13:26 | Emergency (ER) | payer SELFPAY ==
[~2019-08-26] VITALS: Ht 163 cm; Wt 59.0 kg
[~2019-08-26 13:26] MED LIST changes: +SERT25TA PO; +TRAM-42 PO
[2019-08-26] MEDS ORDERED: LACTATED RINGERS 1,000 ML IV ONE (13:56)
[2019-08-26] MEDS ORDERED: ONDANSETRON 4 MG/2 ML (SDV) Z0FRAN IVP ONE (14:00)
[2019-08-26 14:09] LABS: BASOPHILS % (AUTO) 0 % (0-10); EOSINOPHILS % (AUTO) 0 % (0-10); HEMATOCRIT 39 % (35-52); HEMOGLOBIN 13.2 G/DL (11.5-16.0); LYMPHOCYTES # (AUTO) 0.4 X 10^3 (1.0-4.0); LYMPHOCYTES % (AUTO) 4 % (12-44); MEAN CORPUSCULAR HEMOGLOBIN 27 PG (25-34); MEAN CORPUSCULAR HGB CONC 34 G/DL (32-36); MEAN CORPUSCULAR VOLUME 79 FL (80-99); MEAN PLATELET VOLUME 12.4 FL (7.4-10.4); MONOCYTES # (AUTO) 0.3 X 10^3 (0.0-1.0); MONOCYTES % (AUTO) 3 % (0-12); NEUTROPHILS # (AUTO) 9.9 X 10^3 (1.8-7.8); NEUTROPHILS % (AUTO) 93 % (42-75); RED CELL DISTRIBUTION WIDTH 13.8 % (10.0-14.5); WHITE BLOOD COUNT 10.7 10^3/uL (4.3-11.0)
[2019-08-26 14:10] LABS: PLATELET COUNT 65 10^3/uL (130-400)
--- NOTE | 2019-08-26 14:10 | ED Abdominal Pain ---
General Chief Complaint: Abdominal/GI Problems Stated Complaint: VOMITING Nursing Triage Note: Patient reports emesis starting at 0630 this morning Sepsis Screen: No Definite Risk Source of Information: Patient Exam Limitations: No Limitations (AMINAH CHATTERJEE MEDICAL STUDENT) History of Present Illness Date Seen by Provider: Aug 26, 2019 Time Seen by Provider: 13:39 Initial Comments Ms. Chan is a 24 year old female presenting to the ED via private vehicle for vomiting. Patient reports that she has been vomiting nearly continuously since 0600 today and unable to keep anything down. The vomit has been mostly watery with no blood. She also complains of nausea and abdominal pain, 7/10 in severity, primarily in the left lower quadrant. The abdominal pain occasionally radiates midline and to the right side. Patient denies diarrhea and her last bowel movement was 2 days ago, which is normal for her. She denies any recent change in her diet, eating at new restaurants or spoiled foods. Patient is sexually active and her LMP was 07/21/19. Her cycles are usually regular and she is not using any form of contraception currently. She has not tried any medications and has not found anything that makes the pain or vomiting better or worse. (AMINAH CHATTERJEE MEDICAL STUDENT) Timing/Duration: 12 Hours Severity/Quality: Moderate Location: LLQ, Generalized Abdomen Radiation: LUQ, RLQ Activities at Onset: None Modifying Factors: Worsens With Eating; Improves With Vomiting Associated Symptoms: No Back Pain, No Chest Pain, No Fever/Chills; Nausea/Vomiting; No Shortness of Air; Weakness (PRISCILLA BRYANT MD) Allergies and Home Medications Allergies Coded Allergies: Penicillins (Verified Allergy, Unknown, 11/22/17) Home Medications Unable to Obtain Active Prescriptions or Reported Meds Patient Home Medication List Home Medication List Reviewed: Yes (PRISCILLA BRYANT MD) Review of Systems Review of Systems Constitutional: chills, dizziness Respiratory: SOA With Exertion, Other (No cough) Cardiovascular: No Symptoms Reported, Other (No chest pain, palpitations, or syncope) Gastrointestinal: Abdominal Pain, Nausea, Poor Appetite, Poor Fluid Intake, Vomiting Genitourinary: Frequency, Other (No urgency, dysuria, or burning with urination) Musculoskeletal: no symptoms reported (Denies myalgias, arthralgias), other Psychiatric/Neurological: No Symptoms Reported, Other (Denies numbness, tingling) Endocrine: No Symptoms Reported, Other (Denies hot/cold intolerance, changes in weight) (AMINAH CHATTERJEE MEDICAL STUDENT) Respiratory: SOA With Exertion, Other (No cough) Gastrointestinal: Abdominal Pain, Nausea, Poor Appetite, Poor Fluid Intake, Vomiting Skin: no symptoms reported (PRISCILLA BRYANT MD) Past Aumyqrg-Avkgvu-Qpuzsg Hx Past Med/Social Hx: Reviewed Nursing Past Med/Soc Hx (PRISCILLA BRYANT MD) Patient Social History Alcohol Use: Denies Use Recreational Drug Use: No 2nd Hand Smoke Exposure: No Recent Foreign Travel: No Contact w/Someone Who Travel: No Recent Infectious Disease Expo: No Recent Hopitalizations: No (AMINAH CHATTERJEE STUDENT) Immunizations Up To Date Tetanus Booster (TDap): Unknown PED Vaccines UTD: Yes (AMINAH CHATTERJEE STUDENT) Seasonal Allergies Seasonal Allergies: No (AMINAH CHATTERJEE) Past Medical History Surgeries: Yes Appendectomy Respiratory: No Cardiac: No Neurological: No Genitourinary: No Gastrointestinal: No Musculoskeletal: No Endocrine: No HEENT: No Cancer: No Psychosocial: Yes (JUST STARTED ZOLOFT 09/2018) Depression Integumentary: No Blood Disorders: No (AMINAH CHATTERJEE STUDENT) Family Medical History Reviewed Nursing Family Hx (PRISCILLA BRYANT MD) Physical Exam Vital Signs Vital Signs - First Documented 08/26/19 13:34 Temp 37.5 Pulse 100 Resp 18 B/P (MAP) 112/67 (82) Pulse Ox 98 (PRISCILLA BRYANT MD) Vital Signs Capillary Refill : Less Than 3 Seconds (AMINAH CHATTERJEE STUDENT) Height/Weight/BMI Height: 5'4.00" Weight: 114lbs. oz. 51.559765no; 22.00 BMI Method:Stated General Appearance: WD/WN, mild distress HEENT: TMs normal, pharynx normal, other (Dry mucous membranes) Respiratory: lungs clear, normal breath sounds Cardiovascular: normal peripheral pulses, regular rate, rhythm, no edema Gastrointestinal: soft, tenderness (TTP in all 4 quadrants- worse in RUQ & RLQ), other (No rebound, guarding, rigidity) Extremities: normal range of motion, no pedal edema, no calf tenderness Neurologic/Psychiatric: alert, normal mood/affect, oriented x 3 Skin: normal color, warm/dry (CHATTERJEE,AMINAH MEDICAL STUDENT) Neck: full range of motion, supple Respiratory: lungs clear, normal breath sounds Cardiovascular: no edema, tachycardia Peripheral Pulses: 2+ Dorsalis Pedis (R), 2+ Left Dors-Pedis (L), 2+ Radial Pulses (R), 2+ Radial Pulses (L) Gastrointestinal: soft, tenderness (TTP in all 4 quadrants- worse in RUQ & RLQ. On repeat exam, patient is relatively pain free in all quadrants.), other (No rebound, guarding, rigidity) Extremities: no pedal edema, no calf tenderness Back: normal inspection, no CVA tenderness, no vertebral tenderness Neurologic/Psychiatric: alert, oriented x 3 Skin: normal color, warm/dry (PRISCILLA BRYANT MD) Progress/Results/Core Measures Results/Orders Lab Results Laboratory Tests Test 08/26/19 13:40 08/26/19 15:23 Range/Units White Blood Count 10.7 4.3-11.0 10^3/uL Red Blood Count 4.87 4.35-5.85 10^6/uL Hemoglobin 13.2 11.5-16.0 G/DL Hematocrit 39 35-52 % Mean Corpuscular Volume 79 L 80-99 FL Mean Corpuscular Hemoglobin 27 25-34 PG Mean Corpuscular Hemoglobin Concent 34 32-36 G/DL Red Cell Distribution Width 13.8 10.0-14.5 % Platelet Count 65 L 130-400 10^3/uL Mean Platelet Volume 12.4 H 7.4-10.4 FL Neutrophils (%) (Auto) 93 H 42-75 % Lymphocytes (%) (Auto) 4 L 12-44 % Monocytes (%) (Auto) 3 0-12 % Eosinophils (%) (Auto) 0 0-10 % Basophils (%) (Auto) 0 0-10 % Neutrophils # (Auto) 9.9 H 1.8-7.8 X 10^3 Lymphocytes # (Auto) 0.4 L 1.0-4.0 X 10^3 Monocytes # (Auto) 0.3 0.0-1.0 X 10^3 Eosinophils # (Auto) 0.0 0.0-0.3 10^3/uL Basophils # (Auto) 0.0 0.0-0.1 10^3/uL Neutrophils % (Manual) 98 % Lymphocytes % (Manual) 2 % Monocytes % (Manual) 0 % Eosinophils % (Manual) 0 % Basophils % (Manual) 0 % Band Neutrophils 0 % Blood Morphology Comment NORMAL Sodium Level 140 135-145 MMOL/L Potassium Level 4.2 3.6-5.0 MMOL/L Chloride Level 109 H 98-107 MMOL/L Carbon Dioxide Level 16 L 21-32 MMOL/L Anion Gap 15 H 5-14 MMOL/L Blood Urea Nitrogen 12 7-18 MG/DL Creatinine 0.83 0.60-1.30 MG/DL Estimat Glomerular Filtration Rate > 60 BUN/Creatinine Ratio 14 Glucose Level 96 70-105 MG/DL Calcium Level 9.2 8.5-10.1 MG/DL Corrected Calcium 8.5-10.1 MG/DL Total Bilirubin 0.8 0.1-1.0 MG/DL Aspartate Amino Transf (AST/SGOT) 20 5-34 U/L Alanine Aminotransferase (ALT/SGPT) 12 0-55 U/L Alkaline Phosphatase 65 40-136 U/L C-Reactive Protein High Sensitivity 0.73 H 0.00-0.50 MG/DL Total Protein 7.8 6.4-8.2 GM/DL Albumin 4.7 H 3.2-4.5 GM/DL Serum Test, Qualitative NEGATIVE NEGATIVE Urine Color YELLOW Urine Clarity CLEAR Urine pH >=9.0 5-9 Urine Specific [place] 1.015 L 1.016-1.022 Urine Protein NEGATIVE NEGATIVE Urine Glucose (UA) NEGATIVE NEGATIVE Urine Ketones 3+ H NEGATIVE Urine Nitrite NEGATIVE NEGATIVE Urine Bilirubin NEGATIVE NEGATIVE Urine Urobilinogen 0.2 < = 1.0 MG/DL Urine Leukocyte Esterase NEGATIVE NEGATIVE Urine RBC (Auto) NEGATIVE NEGATIVE Urine RBC NONE /HPF Urine WBC RARE /HPF Urine Squamous Epithelial Cells 2-5 /HPF Urine Crystals NONE /LPF Urine Bacteria FEW H /HPF Urine Casts NONE /LPF Urine Mucus SMALL H /LPF Urine Culture Indicated NO (PRISCILLA BRYANT MD) Micro Results Microbiology 08/26/19 Influenza Types A,B Antigen (TYSEHA) - Final, Complete (PRISCILLA BRYANT MD) My Orders Orders - PRISCILLA BRYANT MD Cbc With Automated Diff (08/26/19 13:56) Comprehensive Metabolic Panel (08/26/19 13:56) Hs C Reactive Protein (08/26/19 13:56) Ua Culture If Indicated (08/26/19 13:56) Ed Iv/Invasive Line Start (08/26/19 13:56) Lactated Ringers (Lr 1000 Ml Iv Solution (08/26/19 13:56) Urine Bedside (08/26/19 13:56) Ondansetron Injection (Zofran Injectio (08/26/19 14:00) Influenza A And B Antigens (08/26/19 13:56) Manual Differential (08/26/19 13:40) Hcg,Qualitative Serum (08/26/19 15:11) Famotidine Injection (Pepcid Injection) (08/26/19 15:18) Ketorolac Injection (Toradol Injection) (08/26/19 15:35) (PRISCILLA BRYANT MD) Medications Given in ED Current Medications Medications Dose Ordered Sig/Smitha Route Start Time Stop Time Status Last Admin Dose Admin Lactated Ringer's 1,000 ml @ 0 mls/hr Q0M ONCE IV 08/26/19 13:56 08/26/19 13:59 DC 08/26/19 14:07 0 MLS/HR Ondansetron HCl 4 mg ONCE ONCE IVP 08/26/19 14:00 08/26/19 14:01 DC 08/26/19 14:07 4 MG (PRISCILLA BRYANT MD) Vital Signs/I&O 08/26/19 13:34 Temp 37.5 Pulse 100 Resp 18 B/P (MAP) 112/67 (82) Pulse Ox 98 (PRISCILLA BRYANT MD) Blood Pressure Mean: 82 Progress Progress Note : Progress Note Seen and evaluated. IV, labs, Zofran 4 mg IV, LR 1 L bolus, UA and UCG ordered. Monitor patient. Patient unable to give urine initially. HCG ordered and this was negative. Toradol 30 mg IV and famotidine 20 mg IV ordered. This did improve her symptoms. 1605: Overall better and feels comfortable going home. Discharged home with return precautions. Patient verbalize understanding instructions and agreement with plan. (PRISCILLA BRYANT MD) Departure Impression Primary Impression: Nausea and vomiting Qualified Codes: R11.2 - Nausea with vomiting, unspecified Additional Impression: Generalized abdominal pain Disposition: HOME, SELF-CARE Condition: Against Medical Advice Departure-Patient Inst. Decision time for Depature: 16:08 (PRISCILLA BRYANT MD) Referrals: [facility] (PCP/Family) Primary Care Physician Patient Instructions: Acute Abdomen (Belly Pain), Adult (DC), Nausea and Vomiting, Adult (DC) Add. Discharge Instructions: All discharge instructions reviewed with patient and/or family. Voiced understanding. Clear liquid diet for the next 24 hours and then advance as tolerated. Take medications as directed. You may also take Tylenol/acetaminophen 1000 mg every 8 hours as needed for pain. You may take [id number] Pepcid or the generic famotidine for stomach upset as well. Return for worse pain, fever, vomiting, weakness, breathing problems or other concerns as needed. Scripts Promethazine HCl (Promethazine Tablet) 25 Mg Tablet 25 MG PO Q8H PRN for NAUSEA/VOMITING, #10 TAB 0 Refills Prov: PRISCILLA BRYANT MD 08/26/19 AMINAH CHATTERJEE MEDICAL STUDENT Aug 26, 2019 14:10 PRISCILLA BRYANT MD Aug 26, 2019 16:09
[2019-08-26 14:18] LABS: ALANINE AMINOTRANSFERASE 12 U/L (0-55); ALBUMIN 4.7 GM/DL (3.2-4.5); ALKALINE PHOSPHATASE 65 U/L (40-136); BILIRUBIN,TOTAL 0.8 MG/DL (0.1-1.0); BUN/CREATININE RATIO 14; CALCIUM 9.2 MG/DL (8.5-10.1); CARBON DIOXIDE 16 MMOL/L (21-32); CHLORIDE 109 MMOL/L (98-107); CREATININE SERUM 0.83 MG/DL (0.60-1.30); GFR ESTIMATED > 60; GLUCOSE 96 MG/DL (70-105); POTASSIUM 4.2 MMOL/L (3.6-5.0); SODIUM 140 MMOL/L (135-145); TOTAL PROTEIN 7.8 GM/DL (6.4-8.2)
[2019-08-26 14:36] LABS: BAND NEUTROPHILS 0 %; BASOPHILS % (MANUAL) 0 %; EOSINOPHILS % (MANUAL) 0 %; LYMPHOCYTES % (MANUAL) 2 %; MONOCYTES % (MANUAL) 0 %; NEUTROPHILS % (MANUAL) 98 %; RBC MORPH NORMAL
[2019-08-26] MEDS ORDERED: KETOROLAC 30 MG/ML VIAL IVP STA ×2 (15:11→15:35)
[2019-08-26] MEDS ORDERED: FAMOTIDINE 20MG/2ML IV (PEPCID) IV STA (15:18)
[2019-08-26 15:31] LABS: BILIRUBIN,URINE NEGATIVE (NEGATIVE); CLARITY,URINE CLEAR; COLOR,URINE YELLOW; GLUCOSE, URINE (UA) NEGATIVE (NEGATIVE); KETONES,URINE 3+ (NEGATIVE); LEUKOCYTE ESTERASE ,URINE NEGATIVE (NEGATIVE); NITRITE,URINE NEGATIVE (NEGATIVE); PH,URINE >=9.0 (5-9); PROTEIN,URINE NEGATIVE (NEGATIVE)
[2019-08-26 15:41] LABS: BACTERIA,URINE FEW /HPF; WBC,URINE RARE /HPF
[2019-08-26] MEDS ORDERED: PROM25TA14 PO (16:10)
[2019-08-26 16:14] VITALS: BP 112/67
== END 2019-08-26 16:16 | disposition home or self-care (01) ==
LOC: EDUNIT# 13:26 → ER 13:26
DX: R11.2 Nausea with vomiting, unspecified (principal); R10.84 Generalized abdominal pain; Z88.0 Allergy status to penicillin; Z90.49 Acquired absence of other specified parts of digestive tract
CPT/HCPCS: 36415; 80053; 81000; 84703; 85007; 85027; 86141; 87804

== ENCOUNTER 2022-11-02 07:36 | Emergency (ER) | payer SELFPAY ==
[~2022-11-02] VITALS: Ht 162 cm; Wt 52.0 kg
[~2022-11-02 07:36] MED LIST changes: +PROM25TA14 PO
[2022-11-02 07:40] VITALS: BP 110/56
[2022-11-02] MEDS ORDERED: CHLO473M4 MM (08:08)
--- NOTE | 2022-11-02 08:08 | ED EENT ---
History of Present Illness General Chief Complaint: Dental Problems/Pain Stated Complaint: TOOTH PAIN Nursing Triage Note: ARRIVED VIA AMB TO ROOM 06 WITH COMPLAINTS OF UPPER RIGHT MOUTH PAIN DUE TO BROKEN TEETH. STATES HER BOTTOM JAW IS NOW HURTING WHICH IS NEW. PT DOES NOT HAVE A DENTIST. Source: patient Exam Limitations: no limitations History of Present Illness Date Seen by Provider: Nov 02, 2022 Time Seen by Provider: 07:46 Initial Comments This 27-year-old young lady presents to the emergency with primary complaint of pain around the gums and gingiva of her mandible. Pain actually started in the right upper molars several days ago. She tried to treat that pain with salt water rinses, mouthwash, and Orajel. She has multiple broken and corroded molars which likely were the source of her pain initially. The pain around the gums and gingiva started after using the rinses and topical treatments. 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 She has not had any fever. She complains of a fairly intense burning sensation in the affected area. She has not seen a dentist. She has taken Tylenol without any improvement. She also vapes nicotine and smokes marijuana. Allergies and Home Medications Allergies Coded Allergies: Penicillins (Verified Allergy, Unknown, 11/22/17) Patient Home Medication List Home Medication List Reviewed: Yes Chlorhexidine Gluconate (Peridex) 0.12 % Mouthwash, 15 ML MM BID Prescribed by: ALBERTO PINTO on 11/02/22 0808 Discontinued Medications Promethazine HCl (Promethazine Tablet) 25 Mg Tablet, 25 MG PO Q8H PRN for NAUSEA/VOMITING Discontinued Reason: No Longer Taking Prescribed by: PRISCILLA BRYANT on 08/26/19 1610 Last Action: Discontinued Review of Systems Review of Systems Constitutional: no symptoms reported Eyes: No Symptoms Reported Ears: No Symptoms Reported Nose: no symptoms reported Mouth: see HPI Throat: no symptoms reported Respiratory: no symptoms reported Cardiovascular: no symptoms reported Gastrointestinal: no symptoms reported Musculoskeletal: no symptoms reported Skin: no symptoms reported Neurological: No Symptoms Reported Hematologic/Lymphatic: No Symptoms Reported Past Cbcfhxq-Kjhlel-Kzgryn Hx Patient Social History Tobacco Use?: No Use of E-Cig and/or Vaping dev: Yes E-Cig or Vaping type used: Nicotine Substance use?: Yes Substance type: Marijuana Alcohol Use?: No Immunizations Up To Date Tetanus Booster (TDap): Unknown PED Vaccines UTD: Yes Seasonal Allergies Seasonal Allergies: No Past Medical History Surgeries: Yes Appendectomy Respiratory: No Cardiac: No Neurological: No : No Last Menstrual Period: Oct 27, 2022 Genitourinary: No Gastrointestinal: No Musculoskeletal: No Endocrine: No HEENT: No Cancer: No Psychosocial: Yes (JUST STARTED ZOLOFT 09/2018) Depression Integumentary: No Blood Disorders: Yes (Thrombocytopenia) Physical Exam Vital Signs Vital Signs - First Documented 11/02/22 07:40 Temp 35.7 Pulse 53 Resp 16 B/P (MAP) 110/56 (74) Pulse Ox 99 O2 Delivery Room Air Height, Weight, BMI Height: 5'4.00" Weight: 114lbs. oz. 51.833387qg; 19.00 BMI Method:Stated General Appearance: WD/WN, mild distress Eyes: bilateral eye normal inspection Ears: bilateral ear auricle normal, bilateral ear canal normal, bilateral ear TM normal Nose: normal inspection Mouth/Throat: pharynx normal, other (Multiple eroded and broken teeth, especially the molars. There is leukoplakia on the mucosal surfaces of the lower gums and cheeks near the gums. No bleeding or erythematous inflammation is noted. There are no overt abscesses.) Neck: normal inspection Cardiovascular: regular rate, rhythm, no edema Respiratory: lungs clear, normal breath sounds, no respiratory distress Neurologic/Psychiatric: alert, normal mood/affect, oriented x 3 Skin: normal color, warm/dry Progress/Results/Core Measures Results/Orders My Orders Orders - ALBERTO PARR MD Fluconazole Tablet (Ed Only) (Diflucan T (11/02/22 08:15) Ondansetron Oral Dissolve Tab (Zofran (11/02/22 08:15) Medications Given in ED Vital Signs/I&O Blood Pressure Mean: 74 Progress Progress Note : Progress Note The cause of her pain and leukoplakia is uncertain. Since it started after she began using mouthwash, salt rinses, and Orajel for the dental pain. I am suspicious it is a topical irritation. Patient also vapes. The appearance of the tissue could also suggest thrush. For this reason patient was prescribed Diflucan. She did suddenly developed some nausea and vomited during her ER visit. Zofran was given prior to the Diflucan. There did not appear to be any overt bacterial infection or abscess. The deeper dental pain had resolved. For this reason no antibiotics were prescribed. Patient was advised to use a chlorhexidine rinse instead of trds-hri-eavkkbs topical preparations or salt rinses. She was advised to not use the chlorhexidine rinse for more than 1 week due to risk of dental staining. Patient was treated with the Diflucan rather than a nystatin prescription because she lacks insurance and has a financial barrier to receiving health care and getting medications. See discharge instructions for further discussion. Departure Impression Primary Impression: Acute oral pain Additional Impressions: Dental caries Oral thrush Disposition: HOME, SELF-CARE Condition: Stable Departure-Patient Inst. Decision time for Depature: 08:03 Referrals: [facility] [place] Primary Care Physician Patient Instructions: Dental Pain ED, Thrush (DC) Add. Discharge Instructions: You may take Tylenol (acetaminophen) up to 1000 mg every 6 hours as needed as well as ibuprofen up to 600 mg every 6 hours as needed. The irritation on your gums and other mouth surfaces may be due to chemical irritation from something you used to treat your dental pain. There may also be thrush (yeast infection) involved. Chemicals from vaping may also be a contributing factor. Work toward quitting vaping. Do not use hhdi-izc-nksuhnp mouthwash, Orajel, or salt rinses. Instead, use the prescription antiseptic mouthwash provided. Swish it for 30 to 60 seconds and spit. Use twice daily for a week. Be very cautious with what you eat and drink. In particular, avoid sugary foods and beverages and acidic foods and beverages such as citrus, tomato, carbonation, etc. Salty foods are also likely to cause a burning sensation. Avoid those until you are healed. Continue very gently brushing your teeth twice daily with a soft bristle toothbrush and a mild toothpaste. Follow-up with a dentist as soon as possible. Return to care if you have worsening symptoms despite following these instructions. All discharge instructions reviewed with patient and/or family. Voiced bishop friedman. Scripts Chlorhexidine Gluconate (Peridex) 0.12 % Mouthwash 15 ML MM BID, #473 ML Swish for 30 seconds and spit. Prov: ALBERTO PARR MD 11/02/22 Copy Copies To 1: [facility] [place] ALBET[place] PARR MD Nov 02, 2022 08:08
[2022-11-02] MEDS ORDERED: ONDANSETRON 4 MG (ZOFRAN) ORAL DISSOLVE TAB SL ONE (08:15)
[2022-11-02] MEDS ORDERED: FLUCONAZOLE 150 MG TABLET (ED ONLY) PO ONE (08:15)
== END 2022-11-02 08:16 | disposition home or self-care (01) ==
LOC: EDUNIT# 07:36 → ER 07:39
DX: K02.9 Dental caries, unspecified (principal); B37.0 Candidal stomatitis; R11.2 Nausea with vomiting, unspecified; K13.21 Leukoplakia of oral mucosa, including tongue; F17.290 Nicotine dependence, other tobacco product, uncomplicated; Z88.1 Allergy status to other antibiotic agents; Z28.310 Unvaccinated for COVID-19
CPT/HCPCS: 99283

== ENCOUNTER 2023-02-15 23:33 | Emergency (ER) | payer SELFPAY ==
[~2023-02-15] VITALS: Ht 162.6 cm; Wt 49.9 kg
[~2023-02-15 23:33] MED LIST changes: +CHLO473M4 MM
[2023-02-15 23:39] VITALS: BP 116/67
[2023-02-15] MEDS ORDERED: KETO10TA PO (23:58)
[2023-02-15] MEDS ORDERED: CLIN-144 PO (23:58)
--- NOTE | 2023-02-15 23:59 | ED EENT ---
History of Present Illness General Chief Complaint: Dental Problems/Pain Stated Complaint: DENTAL PAIN Nursing Triage Note: right upper dental pain x1 day, worse tonight with pain radiating to face. reports 2 broken teeth. Source: patient Exam Limitations: no limitations History of Present Illness Date Seen by Provider: Feb 15, 2023 Time Seen by Provider: 23:34 Initial Comments 27yoF presenting due to right sided tooth pain radiating up to her ear that started on Tuesday, getting progressively worse. The pain is constant, moderate, and sharp. Has tried ibuprofen and ice with little relief. No sore throat, voice changes, hearing loss, difficulty swallowing, fever, or any other concerns. LMP was 1 week ago. Allergies and Home Medications Allergies Coded Allergies: Penicillins (Verified Allergy, Unknown, 11/22/17) Patient Home Medication List Home Medication List Reviewed: Yes Chlorhexidine Gluconate (Peridex) 0.12 % Mouthwash, 15 ML MM BID Prescribed by: ALBERTO PINTO on 11/02/22 0808 Clindamycin HCl (Clindamycin HCl) 300 Mg Capsule, 300 MG PO QID Prescribed by: MARIELA ROSARIO on 02/15/23 2358 Ketorolac Tromethamine (Ketorolac Tromethamine) 10 Mg Tablet, 10 MG PO Q8H Prescribed by: MARIELA ROSARIO on 02/15/23 2358 Review of Systems Review of Systems Constitutional: No fever Eyes: No Symptoms Reported Ears: No Symptoms Reported Nose: no symptoms reported Mouth: see HPI Throat: no symptoms reported Respiratory: no symptoms reported Cardiovascular: no symptoms reported Gastrointestinal: no symptoms reported Musculoskeletal: no symptoms reported Past Emctmcr-Scqsll-Zxqfjs Hx Patient Social History Tobacco Use?: Yes Substance use?: No Alcohol Use?: No Pt feels they are or have been: No Immunizations Up To Date Tetanus Booster (TDap): Unknown PED Vaccines UTD: Yes Seasonal Allergies Seasonal Allergies: No Past Medical History Surgery/Hospitalization HX: appendectomy Surgeries: Yes Appendectomy Respiratory: No Cardiac: No Neurological: No Genitourinary: No Gastrointestinal: No Musculoskeletal: No Endocrine: No HEENT: No Cancer: No Psychosocial: Yes (JUST STARTED ZOLOFT 09/2018) Depression Integumentary: No Blood Disorders: Yes (Thrombocytopenia) Physical Exam Vital Signs Vital Signs - First Documented 02/15/23 23:39 Temp 37.1 Pulse 57 Resp 18 B/P (MAP) 116/67 (83) Pulse Ox 98 O2 Delivery Room Air Height, Weight, BMI Height: 5'4.00" Weight: 114lbs. oz. 51.353095dx; 18.00 BMI Method:Stated General Appearance: WD/WN, no apparent distress Eyes: bilateral eye normal inspection Ears: bilateral ear auricle normal Mouth/Throat: other (Dental caries with poor dentition, right upper mouth dental tenderness with no palpable abscess, no facial swelling) Neck: non-tender, full range of motion, supple, normal inspection Cardiovascular: regular rate, rhythm, no edema, no murmur Respiratory: chest non-tender, lungs clear, normal breath sounds, no respiratory distress, no accessory muscle use Gastrointestinal: normal bowel sounds, non tender, soft; No distended, No guarding, No rebound Neurologic/Psychiatric: no motor/sensory deficits, alert, normal mood/affect Skin: normal color, warm/dry Progress/Results/Core Measures Results/Orders My Orders Orders - MARIELA ROSARIO MD Clindamycin Capsule (Cleocin Capsule) (02/16/23 00:00) Ketorolac Injection (Toradol Injection) (02/16/23 00:00) Vital Signs/I&O 02/15/23 23:39 Temp 37.1 Pulse 57 Resp 18 B/P (MAP) 116/67 (83) Pulse Ox 98 O2 Delivery Room Air Blood Pressure Mean: 83 Progress Progress Note : Progress Note Keep above history coming in due to dental pain. ABCs were intact and vitals were stable on presentation. Physical exam with multiple dental caries, likely dental infection but no dental abscess. She has no red flags otherwise on history and physical. She will be given clindamycin here due to allergies as well as a Toradol shot. Prescription will be sent and she is planning to follow-up with the dentist tomorrow. I believe she stable for discharge with outpatient follow-up. She was sent home with strict return precautions Departure Impression Primary Impression: Pain, dental Disposition: HOME, SELF-CARE Condition: Stable Departure-Patient Inst. Decision time for Depature: 00:05 Referrals: [facility] (PCP/Family) Primary Care Physician Patient Instructions: Dental Pain Add. Discharge Instructions: Please be sure to follow-up with a dentist as soon as possible as this issue will continue to get worse, and the antibiotics only helped for short period of time. Scripts Ketorolac Tromethamine (Ketorolac Tromethamine) 10 Mg Tablet 10 MG PO Q8H for 3 Days, #9 TAB Prov: MARIELA ROSARIO MD 02/15/23 Clindamycin HCl (Clindamycin HCl) 300 Mg Capsule 300 MG PO QID for 7 Days, #28 CAP Prov: MARIELA ROSARIO MD 02/15/23 Work/School Note: Work Release Form Date Seen in the Emergency Department: Feb 15, 2023 Return to Work: Feb 16, 2023 Restrictions: No Restrictions MARIELA ROSARIO MD Feb 15, 2023 23:59
[2023-02-16] MEDS ORDERED: KETOROLAC 30 MG/ML VIAL IM ONE
[2023-02-16] MEDS ORDERED: CLINDAMYCIN 150 MG (CLEOCIN) CAP PO ONE
== END 2023-02-16 00:12 | disposition home or self-care (01) ==
LOC: EDUNIT# 23:33 → ER 23:35
DX: K02.9 Dental caries, unspecified (principal); Z88.0 Allergy status to penicillin
CPT/HCPCS: 99284

== ENCOUNTER 2023-05-23 16:24 | Emergency (ER) | payer MEDICAID ==
[~2023-05-23] VITALS: Ht 162.4 cm; Wt 53.9 kg
[~2023-05-23 16:24] MED LIST changes: +AZIT250T12 PO; +CLIN-144 PO; +KETO10TA PO
--- NOTE | 2023-05-23 16:31 | ED EENT ---
History of Present Illness General Chief Complaint: Dental Problems/Pain Stated Complaint: TOOTH PAIN RT SIDE, 13 WEEKS History of Present Illness Date Seen by Provider: May 23, 2023 Time Seen by Provider: 16:30 Initial Comments 27-year-old female presents with right-sided dental pain. She reports she has a history of abscesses and poor mentation a lot of cavities on that side. For few days. She is approximately 13 weeks . Allergies and Home Medications Allergies Coded Allergies: Penicillins (Verified Allergy, Unknown, 11/22/17) Patient Home Medication List Home Medication List Reviewed: Yes Azithromycin (Azithromycin) 250 Mg Tablet, 250 MG PO DAILY Prescribed by: Lise Bullock on 04/29/23 214 Chlorhexidine Gluconate (Peridex) 0.12 % Mouthwash, 15 ML MM BID Prescribed by: HASMUKH FRITZ on 05/23/23 1638 Clindamycin HCl (Clindamycin HCl) 300 Mg Capsule, 300 MG PO QID Prescribed by: HASMUKH FRITZ on 05/23/23 1638 Ketorolac Tromethamine (Ketorolac Tromethamine) 10 Mg Tablet, 10 MG PO Q8H Prescribed by: MARIELA ROSARIO on 02/15/23 4735 Review of Systems Review of Systems Constitutional: see HPI Mouth: see HPI Throat: no symptoms reported Respiratory: no symptoms reported Cardiovascular: no symptoms reported Gastrointestinal: no symptoms reported Past Srfjdbt-Pptizz-Kureoe Hx Immunizations Up To Date Tetanus Booster (TDap): Unknown PED Vaccines UTD: Yes Seasonal Allergies Seasonal Allergies: No Past Medical History Surgery/Hospitalization HX: appendectomy Surgeries: Yes Appendectomy Respiratory: No Cardiac: No Neurological: No Genitourinary: No Gastrointestinal: No Musculoskeletal: No Endocrine: No HEENT: No Cancer: No Psychosocial: Yes (JUST STARTED [employer] 09/2018) Depression Integumentary: No Blood Disorders: Yes (Thrombocytopenia) Physical Exam Vital Signs Vital Signs - First Documented 05/23/23 16:32 Temp 37.0 Pulse 95 B/P (MAP) 143/85 (104) Pulse Ox 95 O2 Delivery Room Air Height, Weight, BMI Height: 5'4.00" Weight: 114lbs. oz. 51.862934lg; 17.00 BMI Method:Stated General Appearance: WD/WN, no apparent distress Mouth/Throat: dental tenderness, other (No abscess noted, multiple dental caries right upper) Cardiovascular: normal peripheral pulses, regular rate, rhythm Respiratory: lungs clear, normal breath sounds Gastrointestinal: non tender, soft Neurologic/Psychiatric: alert, normal mood/affect, oriented x 3 Skin: normal color, warm/dry Progress/Results/Core Measures Progress Progress Note : Progress Note Patient with likely infected dental carry with no notable abscess at this time. Patient is allergic to penicillin so we will start her on clindamycin. Clindamycin has a safety rating during . I did recommend she follow-up with her dentist as soon as possible as she has multiple dental caries on that side that will need to be addressed. Patient can use Tylenol, topical lidocaine and topical clove oil for pain control. Departure Impression Primary Impression: Infected dental caries Additional Impression: 13 weeks gestation of Disposition: 01 HOME, SELF-CARE Condition: Stable Departure-Patient Inst. Referrals: [facility] (PCP/Family) Primary Care Physician Patient Instructions: Dental Pain, Medications and , - The Third Month Add. Discharge Instructions: You may use Tylenol as needed for discomfort. Also may use topical lidocaine gel along with clove oil. Please follow-up with a dentist as soon as possible for further management. All discharge instructions reviewed with patient and/or family. Voiced understanding. Scripts Clindamycin HCl (Clindamycin HCl) 300 Mg Capsule 300 MG PO QID for 7 Days, #28 CAP Prov: HASMUKH FRITZ DO 05/23/23 Chlorhexidine Gluconate (Peridex) 0.12 % Mouthwash 15 ML MM BID, #473 ML Swish for 30 seconds and spit. Prov: HASMUKH FRITZ DO 05/23/23 HASMUKH FRITZ DO May 23, 2023 16:30
[2023-05-23] MEDS ORDERED: CHLO473M4 MM (16:38)
[2023-05-23] MEDS ORDERED: CLIN-144 PO (16:38)
[2023-05-23 16:42] VITALS: BP 128/71
== END 2023-05-23 16:42 | disposition home or self-care (01) ==
LOC: EDUNIT# 16:24 → ER 16:26
DX: O99.611 Diseases of the digestive system complicating pregnancy, first trimester (principal); K04.7 Periapical abscess without sinus; Z3A.13 13 weeks gestation of pregnancy; Z88.0 Allergy status to penicillin
CPT/HCPCS: 99281